=== PATIENT | female | born 1955 | race Caucasian/White ===

== ENCOUNTER 2017-09-21 11:01 | Emergency (ER) | payer OTHER ==
[~2017-09-21] VITALS: Ht 167.6 cm; Wt 83.0 kg
[2017-09-21 11:11] VITALS: BP 149/84; PULSE 68; RESP 17; TEMP 99.2; O2SAT 100
[2017-09-21] MEDS ORDERED: ASPI81TA23 PO (11:14)
[2017-09-21] MEDS ORDERED: ATOR10TA15 PO (11:14)
[2017-09-21] MEDS ORDERED: SODIUM CHLORIDE 0.9% FLUSH 10 ML FLUSH IV FLUSH PRN (11:15)
[2017-09-21] MEDS ORDERED: SODIUM CHLOR 0.9% 1000 ML INJ 1,000 ML IV SCH (11:15)
--- NOTE | 2017-09-21 11:32 | PD ---
HPI Chief Complaint: Abdominal Pain Time Seen by Provider: 11:08 Travel History International Travel<30 days: No Contact w/Intl Traveler<30days: No Traveled to known affect area: No History of Present Illness HPI The patient is a 61-year-old female who presents emergency department for abdominal pain. The patient states she awakened this morning and then developed abdominal pain. The abdominal pain has been intermittent, sharp, rating from the right lower quadrant to the back, and assisted with nausea and sweating. She now states the pain has resolved. The patient did state she had urinary tract infection symptoms earlier in the week with dysuria and urgency, has been taking [id number] Azo. She does note a previous history of section and cholecystitis with subsequent cholecystectomy. She denies any known history of nephrolithiasis or diverticulitis. She denies any fever, chills, or sweats. Symptoms are moderate, self alleviating, and there are no known exacerbating factors. PFSH Past Medical History High Cholesterol: Yes ?: Not Menopausal: Yes Past Surgical History Section: Yes Cholecystectomy: Yes Social History Alcohol Use: Yes (OCC) Tobacco Use: No Substance Use: No Allergies-Medications (Allergen,Severity, Reaction): Coded Allergies: No Known Allergies (Unverified , 09/21/17) Reported Meds & Prescriptions Reported Meds & Active Scripts Active Reported Aspirin EC (Aspirin) 81 Mg Tabdr 81 Mg PO DAILY Atorvastatin (Atorvastatin Calcium) 10 Mg Tab 10 Mg PO HS Review of Systems Except as stated in HPI: all other systems reviewed are Neg General / Constitutional: No: Fever, Chills Cardiovascular: No: Chest Pain or Discomfort Respiratory: No: Shortness of Breath Gastrointestinal: Positive: Nausea, Vomiting, Abdominal Pain, No: Diarrhea, Constipation Genitourinary: Positive: Frequency, Dysuria, No: Hematuria Physical Exam Narrative GENERAL: Awake, alert, pleasant [id number] female who appears her stated age and is in no acute respiratory distress. SKIN: Focused skin assessment warm/dry. HEAD: Atraumatic. Normocephalic. EYES: Pupils equal and round. No scleral icterus. No injection or drainage. ENT: No nasal bleeding or discharge. Mucous membranes pink and moist. NECK: Trachea midline. No JVD. CARDIOVASCULAR: Regular rate and rhythm. No murmur appreciated. RESPIRATORY: No accessory muscle use. Clear to auscultation. Breath sounds equal bilaterally. GASTROINTESTINAL: Abdomen soft, mild tenderness of the right and left lower quadrant. No guarding or rigidity. Back: No CVA tenderness. MUSCULOSKELETAL: No obvious deformities. No clubbing. No cyanosis. No edema. NEUROLOGICAL: Awake and alert. No obvious cranial nerve deficits. Motor grossly within normal limits. Normal speech. PSYCHIATRIC: Appropriate mood and affect; insight and judgment normal. Data Data Last Documented VS Vital Signs Date Time Temp Pulse Resp B/P (MAP) Pulse Ox O2 Delivery O2 Flow Rate FiO2 09/21/17 11:11 99.2 68 17 149/84 (105) 100 Room Air Orders Orders Complete Blood Count With Diff (09/21/17 11:15) Comprehensive Metabolic Panel (09/21/17 11:15) Lipase (09/21/17 11:15) Urinalysis - C+S If Indicated (09/21/17 11:15) Ct Abd/Pel W/O Iv Contrast (09/21/17 11:15) Iv Access Insert/Monitor (09/21/17 11:15) Ecg Monitoring (09/21/17 11:15) Oximetry (09/21/17 11:15) Sodium Chlor 0.9% 1000 Ml Inj (Ns 1000 M (09/21/17 11:15) Sodium Chloride 0.9% Flush (Ns Flush) (09/21/17 11:15) Labs Laboratory Tests Test 09/21/17 11:28 09/21/17 11:40 Urine Color YELLOW Urine Turbidity HAZY Urine pH 6.0 Urine Specific [place] 1.023 Urine Protein TRACE mg/dL Urine Glucose (UA) NEG mg/dL Urine Ketones NEG mg/dL Urine Occult Blood MOD Urine Nitrite NEG Urine Bilirubin NEG Urine Urobilinogen 2.0 MG/DL Urine Leukocyte Esterase NEG Urine RBC 66 /hpf Urine WBC 1 /hpf Urine Squamous Epithelial Cells 1 /hpf Urine Amorphous Sediment OCC Urine Mucus FEW /lpf Microscopic Urinalysis Comment CULT NOT INDICATED White Blood Count 10.2 TH/MM3 Red Blood Count 4.96 MIL/MM3 Hemoglobin 14.6 GM/DL Hematocrit 43.9 % Mean Corpuscular Volume 88.5 FL Mean Corpuscular Hemoglobin 29.4 PG Mean Corpuscular Hemoglobin Concent 33.2 % Red Cell Distribution Width 13.2 % Platelet Count 245 TH/MM3 Mean Platelet Volume 8.0 FL Neutrophils (%) (Auto) 85.1 % Lymphocytes (%) (Auto) 10.2 % Monocytes (%) (Auto) 3.6 % Eosinophils (%) (Auto) 0.8 % Basophils (%) (Auto) 0.3 % Neutrophils # (Auto) 8.7 TH/MM3 Lymphocytes # (Auto) 1.0 TH/MM3 Monocytes # (Auto) 0.4 TH/MM3 Eosinophils # (Auto) 0.1 TH/MM3 Basophils # (Auto) 0.0 TH/MM3 CBC Comment DIFF FINAL Differential Comment Blood Urea Nitrogen 15 MG/DL Creatinine 0.90 MG/DL Random Glucose 108 MG/DL Total Protein 7.3 GM/DL Albumin 3.7 GM/DL Calcium Level 10.2 MG/DL Alkaline Phosphatase 124 U/L Aspartate Amino Transf (AST/SGOT) 20 U/L Alanine Aminotransferase (ALT/SGPT) 37 U/L Total Bilirubin 0.5 MG/DL Sodium Level 141 MEQ/L Potassium Level 3.9 MEQ/L Chloride Level 108 MEQ/L Carbon Dioxide Level 26.2 MEQ/L Anion Gap 7 MEQ/L Estimat Glomerular Filtration Rate 64 ML/MIN Lipase 148 U/L [facility] Medical Decision Making Medical Screen Exam Complete: Yes Emergency Medical Condition: Yes Medical Record Reviewed: Yes Interpretation(s) Laboratory Tests Test 09/21/17 11:28 09/21/17 11:40 Urine Color YELLOW Urine Turbidity HAZY Urine pH 6.0 Urine Specific [place] 1.023 Urine Protein TRACE mg/dL Urine Glucose (UA) NEG mg/dL Urine Ketones NEG mg/dL Urine Occult Blood MOD Urine Nitrite NEG Urine Bilirubin NEG Urine Urobilinogen 2.0 MG/DL Urine Leukocyte Esterase NEG Urine RBC 66 /hpf Urine WBC 1 /hpf Urine Squamous Epithelial Cells 1 /hpf Urine Amorphous Sediment OCC Urine Mucus FEW /lpf Microscopic Urinalysis Comment CULT NOT INDICATED White Blood Count 10.2 TH/MM3 Red Blood Count 4.96 MIL/MM3 Hemoglobin 14.6 GM/DL Hematocrit 43.9 % Mean Corpuscular Volume 88.5 FL Mean Corpuscular Hemoglobin 29.4 PG Mean Corpuscular Hemoglobin Concent 33.2 % Red Cell Distribution Width 13.2 % Platelet Count 245 TH/MM3 Mean Platelet Volume 8.0 FL Neutrophils (%) (Auto) 85.1 % Lymphocytes (%) (Auto) 10.2 % Monocytes (%) (Auto) 3.6 % Eosinophils (%) (Auto) 0.8 % Basophils (%) (Auto) 0.3 % Neutrophils # (Auto) 8.7 TH/MM3 Lymphocytes # (Auto) 1.0 TH/MM3 Monocytes # (Auto) 0.4 TH/MM3 Eosinophils # (Auto) 0.1 TH/MM3 Basophils # (Auto) 0.0 TH/MM3 CBC Comment DIFF FINAL Differential Comment Blood Urea Nitrogen 15 MG/DL Creatinine 0.90 MG/DL Random Glucose 108 MG/DL Total Protein 7.3 GM/DL Albumin 3.7 GM/DL Calcium Level 10.2 MG/DL Alkaline Phosphatase 124 U/L Aspartate Amino Transf (AST/SGOT) 20 U/L Alanine Aminotransferase (ALT/SGPT) 37 U/L Total Bilirubin 0.5 MG/DL Sodium Level 141 MEQ/L Potassium Level 3.9 MEQ/L Chloride Level 108 MEQ/L Carbon Dioxide Level 26.2 MEQ/L Anion Gap 7 MEQ/L Estimat Glomerular Filtration Rate 64 ML/MIN Lipase 148 U/L Last Impressions Abdomen/Pelvis CT 09/21/17 1115 Signed Impressions: Service Date/Time: Thursday, September 21, 2017 11:22 - CONCLUSION: 1. 5 mm right UVJ calcified calculus with associated mild to moderate right-sided hydroureteronephrosis. 2. Normal appendix. 3. Ancillary findings include sigmoid diverticulosis, very small periumbilical fat containing hernia and prior cholecystectomy. Ravin Sanchez MD Differential Diagnosis Differential diagnosis includes diverticulitis, appendicitis, nephrolithiasis, pyelonephritis, partial small bowel obstruction. Narrative Course IV was established, labs are drawn and sent, and the patient was placed on cardiac telemetry monitoring and continuous pulse oximetry monitoring. UA was sent to lab. Noncontrast CT of the abdomen and pelvis was performed. The patient's pain had resolved, therefore, pain medications were withheld, however , the patient was placed on IV fluids. UA reveals RBCs and blood. Creatinine is unremarkable. CT reveals a 5 mm stone at the UVJ with mild to moderate hydronephrosis. The patient's pain is not returned. She is advised to strain her urine and follow-up with her primary physician, symptoms persist she may need referral to urology for possible stent and her lithotripsy. The patient will be provided a prescription for Flomax, ibuprofen, and [place]. She is advised to return if symptoms worsen or progress. Diagnosis Primary Impression: Nephrolithiasis Patient Instructions: General Instructions Additional Instructions: Please provide the patient a strainer at discharge. Please provide the patient a copy of her CT results, lab results, and UA results at discharge. Medications as directed. Follow-up with urology if symptoms worsen or progress. Return as needed. Med/Other Pt SpecificInfo: Prescription(s) given Scripts Ibuprofen (Ibuprofen) 400 Mg Tab 400 MG PO Q6H Y for PAIN SCALE 1 TO 10, #20 TAB 0 Refills Prov: Tunde Stewart MD 09/21/17 Hydrocodone-Acetaminophen ([place]) 5 Mg-325 Mg Tab 1 TAB PO Q6H Y for PAIN for 20 Days, #80 TAB 0 Refills Prov: Tunde Stewart MD 09/21/17 Tamsulosin (Flomax) 0.4 Mg Cap 0.4 MG PO HS for Manage Prostate Problems, #7 CAP 0 Refills Prov: Tunde Stewart MD 09/21/17 Disposition: 01 DISCHARGE HOME Condition: Stable Tunde Stewart MD Sep 21, 2017 11:32
--- NOTE | 2017-09-21 11:46 | RADRPT ---
EXAM DATE/TIME: 09/21/2017 11:22 [place] COMPARISON: No previous studies available for comparison. INDICATIONS : Right lower quadrant pain, vomiting. ORAL CONTRAST: No oral contrast ingested. RADIATION DOSE: 7.35 CTDIvol (mGy) MEDICAL HISTORY : None SURGICAL HISTORY : Cholecystectomy. section. ENCOUNTER: Initial ACUITY: 1 day PAIN SCALE: 8/10 LOCATION: Right lower quadrant TECHNIQUE: Volumetric scanning of the abdomen and pelvis was performed. Using automated exposure control and ad justment of the mA and/or kV according to patient size, radiation dose was kept as low as reasonably achievable to obtain optimal diagnostic quality images. DICOM format image data is available electro nically for review and comparison. FINDINGS: LOWER LUNGS: The visualized lower lungs are clear. LIVER: Homogeneous density without lesion. There is no dilation of the biliary tree. Gallbladder is surgica lly absent. SPLEEN: Normal size without lesion. PANCREAS: Within normal limits. KIDNEYS: 5 mm calcified calculus at the right UVJ with associated mild to moderate right-sided hydroureteronep hrosis. No additional radiopaque renal calculi are demonstrated. No significant contour deforming carmen al abnormality. ADRENAL GLANDS: Within normal limits. VASCULAR: There is no aortic aneurysm. BOWEL/MESENTERY: The stomach, small bowel, and colon demonstrate no acute abnormality. Appendix is normal. Mild sigmo id diverticulosis. There is no free intraperitoneal air or fluid. ABDOMINAL WALL: Small fat containing periumbilical hernia. RETROPERITONEUM: There is no lymphadenopathy. BLADDER: Decompressed. No additional radiopaque calculi. REPRODUCTIVE: Within normal limits. INGUINAL: There is no lymphadenopathy or hernia. MUSCULOSKELETAL: Within normal limits for patient age. CONCLUSION: 1. 5 mm right UVJ calcified calculus with associated mild to moderate right-sided hydroureteronephros is. 2. Normal appendix. 3. Ancillary findings include sigmoid diverticulosis, very small periumbilical fat containing hernia and prior cholecystectomy. Ravin Sanchez MD on September 21, 2017 at 11:40 Board Certified Radiologist. This report was verified electronically.
[2017-09-21 12:03] LABS: AUTOMATED NEUTROPHIL # 8.7 TH/MM3 (1.8-7.7); BASOPHIL % 0.3 % (0.0-2.0); EOSINOPHIL # 0.1 TH/MM3 (0-0.4); EOSINOPHIL % 0.8 % (0.0-4.0); HEMATOCRIT 43.9 % (35.0-46.0); HEMOGLOBIN 14.6 GM/DL (11.6-15.3); LYMPH % 10.2 % (9.0-44.0); MEAN CELL VOLUME 88.5 FL (80.0-100.0); MEAN CORPUSCULAR HEMOGLOBIN 29.4 PG (27.0-34.0); MEAN CORPUSCULAR HGB CONC 33.2 % (32.0-36.0); MONO % 3.6 % (0.0-8.0); MONOCYTE # 0.4 TH/MM3 (0-0.9); NEUT % 85.1 % (16.0-70.0); PLATELET COUNT 245 TH/MM3 (150-450); RED BLOOD COUNT 4.96 MIL/MM3 (4.00-5.30); RED CELL DISTRIBUTION WIDTH 13.2 % (11.6-17.2); WHITE BLOOD COUNT 10.2 TH/MM3 (4.0-11.0)
[2017-09-21 12:20] LABS: ALBUMIN 3.7 GM/DL (3.4-5.0); AST (GOT) 20 U/L (15-37); BICARBONATE 26.2 MEQ/L (21.0-32.0); BLOOD UREA NITROGEN 15 MG/DL (7-18); CALCIUM 10.2 MG/DL (8.5-10.1); CHLORIDE 108 MEQ/L (98-107); GLOMERULAR FILTRATION RATE 64 ML/MIN (>89); GLUCOSE,RANDOM 108 MG/DL (74-106); LIPASE 148 U/L (73-393); SODIUM (NA) 141 MEQ/L (136-145)
[2017-09-21 12:24] LABS: ALKALINE PHOSPHATASE 124 U/L (45-117); ALT (GPT) 37 U/L (10-53); TOTAL BILIRUBIN ADULT 0.5 MG/DL (0.2-1.0); TOTAL PROTEIN 7.3 GM/DL (6.4-8.2)
[2017-09-21 12:33] LABS: AMORPHOUS SEDIMENT, URINE OCC; BILIRUBIN, URINE NEG (NEG); BLOOD, URINE MOD (NEG); GLUCOSE,URINE NEG (NEG); KETONE, URINE NEG (NEG); MUCUS URINE FEW /lpf (OCC); NITRITE,URINE NEG (NEG); SQUAMOUS EPITHELIAL CELL URINE 1 /hpf (0-5); URINE COLOR YELLOW (YELLW/STRAW); URINE LEUKOCYTE ESTERASE NEG (NEG)
[2017-09-21] MEDS ORDERED: NORC5TAB PO (12:52)
[2017-09-21] MEDS ORDERED: IBUP1TAB5 PO (12:52)
[2017-09-21] MEDS ORDERED: TAMS5CAP PO (12:52)
== END 2017-09-21 13:10 | disposition home or self-care (01) ==
LOC: NEPD 11:01
DX: N20.0 Calculus of kidney (principal); K57.90 Diverticulosis of intestine, part unspecified, without perforation or abscess without bleeding; K42.9 Umbilical hernia without obstruction or gangrene; E78.00 Pure hypercholesterolemia, unspecified
CPT/HCPCS: 74176; 80053; 81001; 83690; 85025; 96360; 99284; J7030